=== PATIENT | male | born 1960 | race Caucasian/White ===

== ENCOUNTER 2021-10-23 14:55 | Inpatient (IN) | payer MEDICAID, OTHER ==
[~2021-10-23] VITALS: Ht 177.8 cm; Wt 87.0 kg
[~2021-10-23 14:55] MED LIST: ASPI-556 PO; ATOR10TA69 PO; GABA800T PO; INSLAN SQ; LISI20TA24 PO; OMEP20CA4 PO; TRAM50TA4 PO
[2021-10-23] MEDS ORDERED: METF-911 PO (15:15)
[2021-10-23] MEDS ORDERED: METO25 PO (15:15)
[2021-10-23 15:40] LABS: BASOPHILS % (AUTO) 0.9 % (0.0-2.0); EOSINOPHILS % (AUTO) 2.3 % (1.0-6.0); HEMATOCRIT 39.3 % (41-53); HEMOGLOBIN 13.4 g/dL (13.5-17.5); LYMPHOCYTES # (AUTO) 1.5 K/uL (1.0-4.8); LYMPHOCYTES % (AUTO) 17.1 % (22.0-44.0); MEAN CORPUSCULAR HEMOGLOBIN 28.1 pg (26.0-34.0); MEAN CORPUSCULAR HGB CONC 34.1 G/dL (31.0-37.0); MEAN CORPUSCULAR VOLUME 82 fL (80-100); MONOCYTES # (AUTO) 0.7 K/uL (0.1-1.0); MONOCYTES % (AUTO) 8.6 % (2.0-9.0); NEUTROPHILS # (AUTO) 6.2 K/uL (1.8-7.7); NEUTROPHILS % (AUTO) 71.1 % (40.0-70.0); PLATELET COUNT (AUTO) 402 K/uL (150-450); RED BLOOD CELL COUNT(AUTO) 4.77 MIL/uL (4.50-5.90); RED CELL DISTRIBUTION WIDTH 15.6 % (11.5-14.5)
[2021-10-23 15:44] LABS: SALICYLATE < 2.8 mg/dL (2.8-20.0)
[2021-10-23 15:50] LABS: ALANINE AMINOTRANSFERASE 22 U/L (12-78); ALBUMIN 3.8 g/dL (3.4-5.0); ALKALINE PHOSPHATASE 85 U/L (46-116); ANION GAP 8 mmol/L (8-16); ASPARTATE AMINOTRANSFERASE 20 U/L (15-37); BILIRUBIN,TOTAL 0.5 mg/dL (0.1-1.0); CALCIUM, TOTAL 9.2 mg/dL (8.8-10.5); CARBON DIOXIDE 28 mmol/L (22-29); CHLORIDE 88 mmol/L (98-107); CREATININE 1.15 mg/dL (0.60-1.30); GLOMERULAR FILTR. RATE CALC > 60 mL/min (>60); GLUCOSE,RANDOM 61 mg/dL (70-110); POTASSIUM 4.3 mmol/L (3.5-5.1); TOTAL PROTEIN, SERUM 7.8 g/dL (6.4-8.2); UREA NITROGEN, BLOOD 14 mg/dL (7-18)
[2021-10-23 15:51] LABS: ACETAMINOPHEN < 2 mcg/mL (10-30); SODIUM SERUM 124 mmol/L (136-145)
[2021-10-23 16:07] LABS: COVID AG,FIA SOURCE NASOPHARYNGEAL
[2021-10-23 16:23] LABS: APPEARANCE,URINE CLEAR (CLEAR); BILIRUBIN,URINE NEGATIVE (NEGATIVE); GLUCOSE, URINE (UA) NEGATIVE (NEGATIVE); KETONES,URINE NEGATIVE (NEGATIVE); LEUKOCYTE ESTERASE ,URINE NEGATIVE (NEGATIVE); NITRATE,URINE NEGATIVE (NEGATIVE); OCCULT BLOOD,URINE NEGATIVE (NEGATIVE); PROTEIN,URINE NEGATIVE (NEGATIVE); SPECIFIC GRAVITIY, URINE 1.009 (1.003-1.030); UROBILINOGEN,URINE <=1.0 mg/dL (<=1.0)
[2021-10-23 16:24] LABS: BACTERIA,URINE Rare /HPF (None Seen); RBC,URINE 0-2 /HPF (0-2); SQUAMOUS EPITHELIAL CELL,UR Rare /LPF (None Seen); WBC,URINE 0-2 /HPF (0-5)
[2021-10-23 16:30] LABS: AMPHET/METH SCREEN,URINE NEGATIVE (NEGATIVE); BARBITURATE SCREEN, URINE NEGATIVE (NEGATIVE); BENZODIAZEPINES SCREEN,URINE NEGATIVE (NEGATIVE); CANNABINOID SCREEN,URINE NEGATIVE (NEGATIVE); COCAINE SCREEN,URINE NEGATIVE (NEGATIVE); METHADONE SCREEN, URINE NEGATIVE (NEGATIVE); OPIATE SCREEN,URINE NEGATIVE (NEGATIVE)
[2021-10-23] MEDS ORDERED: LORazepam 2 MG/ML VIAL IVP ONE ×2 (16:30→17:15)
[2021-10-23 16:34] LABS: PHENCYCLIDINE SCREEN,URINE NEGATIVE (NEGATIVE)
[2021-10-23] MEDS ORDERED: 0.9% SODIUM CHLORIDE 10 ML SYRINGE IVP PRN (16:45)
[2021-10-23] MEDS ORDERED: MAGNESIUM SULFATE 2 GM/WATER 50 ML IV PRN ×2 (16:45→23:15)
[2021-10-23] MEDS ORDERED: MAGNESIUM OXIDE 400 MG TABLET PO PRN ×2 (16:45→23:15)
[2021-10-23] MEDS ORDERED: ACETAMINOPHEN 325 MG TABLET PO PRN ×2 (16:45)
[2021-10-23] MEDS ORDERED: BISACODYL 10 MG RECTAL RECTAL SUPPOSITORY PR PRN (16:45)
[2021-10-23] MEDS ORDERED: ZOLPIDEM TARTRATE 5 MG TABLET PO PRN (16:45)
[2021-10-23] MEDS ORDERED: MAGNESIUM SULFATE 4 GM/WATER 100 ML IV PRN ×2 (16:45→23:15)
[2021-10-23] MEDS ORDERED: SODIUM CHLORIDE 0.9% 1,000 ML IV ONE ×2 (16:45)
[2021-10-23] MEDS ORDERED: POTASSIUM CHL 10 MEQ/WATER 50 ML IV PRN (16:45)
[2021-10-23] MEDS ORDERED: ONDANSETRON HCL 4 MG/2 ML VIAL IVP PRN ×2 (16:45)
[2021-10-23] MEDS ORDERED: HYDROCODONE/ACETAMINOPHEN 5-325 MG TABLET PO PRN (16:45)
[2021-10-23] MEDS ORDERED: MORPHINE SULFATE 2 MG/ML SYRINGE IVP PRN (16:45)
[2021-10-23] MEDS ORDERED: MAGNESIUM HYDROXIDE SUSPENSION 30 ML UDCUP PO PRN (16:45)
[2021-10-23] MEDS ORDERED: POTASSIUM CHLORIDE 20 MEQ ER TABLET PO PRN (16:45)
[2021-10-23] MEDS ORDERED: LISI-893 PO (17:12)
[2021-10-23] MEDS ORDERED: ATOR40TA28 PO (17:12)
[2021-10-23] MEDS ORDERED: METF-1211 PO (17:14)
[2021-10-23] MEDS: METOPROLOL TARTRATE 25 MG TABLET PO SCH (20:21)
[2021-10-23] MEDS: DOCUSATE SODIUM 100 MG CAPSULE PO SCH (20:21)
[2021-10-23] MEDS: INSULIN GLARGINE,HUM.REC.ANLOG 100 UNITS/ML SQ SCH (20:23)
[2021-10-23 20:31] LABS: GLUCOSE,POINT OF CARE 147 MG/DL (70-110)
[2021-10-23] MEDS ORDERED: QUEtiapine FUMARATE 100 MG TABLET PO ONE (21:30)
[2021-10-23 21:55] VITALS: BP 113/67
[2021-10-23] MEDS ORDERED: QUEtiapine FUMARATE 300 MG TABLET PO ONE (22:45)
[2021-10-23] MEDS: HEPARIN SODIUM,PORCINE 5,000 UNITS/ML VIAL SQ SCH (23:26)
[2021-10-24] MEDS ORDERED: PNEUMOCOCCAL VACCINE POLYVALENT 0.5 ML VIAL [PPSV23] IM. ONE (01:30)
[2021-10-24 02:16] LABS: GLUCOMETER DEV NAME(LOC) 5N.1C; GLUCOSE,POINT OF CARE 136 MG/DL (70-110)
[2021-10-24 04:36] VITALS: BP 104/74
[2021-10-24 07:11] LABS: BASOPHILS % (AUTO) 0.7 % (0.0-2.0); HEMATOCRIT 37.4 % (41-53); HEMOGLOBIN 12.7 g/dL (13.5-17.5); LYMPHOCYTES # (AUTO) 2.4 K/uL (1.0-4.8); LYMPHOCYTES % (AUTO) 40.4 % (22.0-44.0); MEAN CORPUSCULAR HEMOGLOBIN 28.3 pg (26.0-34.0); MEAN CORPUSCULAR VOLUME 83 fL (80-100); MONOCYTES # (AUTO) 0.6 K/uL (0.1-1.0); MONOCYTES % (AUTO) 9.6 % (2.0-9.0); NEUTROPHILS # (AUTO) 2.7 K/uL (1.8-7.7); NEUTROPHILS % (AUTO) 45.3 % (40.0-70.0); PLATELET COUNT (AUTO) 343 K/uL (150-450); RED BLOOD CELL COUNT(AUTO) 4.49 MIL/uL (4.50-5.90); RED CELL DISTRIBUTION WIDTH 15.8 % (11.5-14.5)
[2021-10-24 07:14] LABS: ALBUMIN 3.6 g/dL (3.4-5.0); ANION GAP 5 mmol/L (8-16); CALCIUM, TOTAL 9.1 mg/dL (8.8-10.5); CARBON DIOXIDE 29 mmol/L (22-29); CHLORIDE 97 mmol/L (98-107); CREATININE 1.17 mg/dL (0.60-1.30); GLOMERULAR FILTR. RATE CALC > 60 mL/min (>60); GLUCOSE,RANDOM 96 mg/dL (70-110); POTASSIUM 4.3 mmol/L (3.5-5.1); SODIUM SERUM 131 mmol/L (136-145); UREA NITROGEN, BLOOD 13 mg/dL (7-18)
[2021-10-24 08:44] VITALS: BP 93/53
[2021-10-24] MEDS: ASPIRIN 81 MG DR TABLET PO SCH (08:49)
[2021-10-24] MEDS: DOCUSATE SODIUM 100 MG CAPSULE PO SCH ×2 (08:49→20:52)
[2021-10-24] MEDS: ATORVASTATIN CALCIUM 40 MG TABLET PO SCH (08:49)
[2021-10-24] MEDS: MetFORMIN HCL 500 MG TABLET PO SCH ×2 (08:49→18:07)
[2021-10-24] MEDS: HEPARIN SODIUM,PORCINE 5,000 UNITS/ML VIAL SQ SCH ×3 (08:51→23:11)
[2021-10-24] MEDS: PANTOPRAZOLE SODIUM 40 MG DR TABLET PO SCH (08:51)
[2021-10-24] MEDS: LISINOPRIL 10 MG TABLET PO SCH (08:52)
[2021-10-24] MEDS: METOPROLOL TARTRATE 25 MG TABLET PO SCH ×2 (08:52→20:56)
[2021-10-24] MEDS ORDERED: ATORVASTATIN CALCIUM 10 MG TABLET PO SCH (09:00)
[2021-10-24] MEDS ORDERED: LISINOPRIL 20 MG TABLET PO SCH (09:00)
[2021-10-24] MEDS: NICOTINE 21 MG/24 HOUR PATCH TD SCH (09:05)
[2021-10-24 12:00] VITALS: BP 107/57
[2021-10-24 15:41] LABS: GLUCOMETER DEV NAME(LOC) 5N.3; GLUCOSE,POINT OF CARE 118 MG/DL (70-110)
[2021-10-24 16:26] LABS: GLUCOMETER DEV NAME(LOC) 5N.1C; GLUCOSE,POINT OF CARE 127 MG/DL (70-110)
[2021-10-24] MEDS ORDERED: DIAZEPAM 5 MG TABLET PO ONE (17:15)
[2021-10-24] MEDS ORDERED: DIAZEPAM 5 MG TABLET PO PRN (17:15)
[2021-10-24 19:35] VITALS: BP 100/59
[2021-10-24 20:51] LABS: GLUCOMETER DEV NAME(LOC) 5N.1C; GLUCOSE,POINT OF CARE 96 MG/DL (70-110)
[2021-10-24] MEDS: DIAZEPAM 2 MG TABLET PO SCH (20:52)
[2021-10-24] MEDS: INSULIN GLARGINE,HUM.REC.ANLOG 100 UNITS/ML SQ SCH (20:55)
[2021-10-24] MEDS ORDERED: QUEtiapine FUMARATE 200 MG TABLET PO SCH (21:00)
[2021-10-24 23:40] VITALS: BP 118/58
[2021-10-24 23:56] LABS: GLUCOMETER DEV NAME(LOC) 5S.2B; GLUCOSE,POINT OF CARE 124 MG/DL (70-110)
[2021-10-25 03:35] VITALS: BP 95/58
[2021-10-25 05:56] LABS: GLUCOMETER DEV NAME(LOC) 5N.1C; GLUCOSE,POINT OF CARE 122 MG/DL (70-110)
[2021-10-25 07:34] VITALS: BP 109/54
[2021-10-25] MEDS ORDERED: PARoxetine HCL 20 MG TABLET PO SCH (09:00)
[2021-10-25] MEDS: PANTOPRAZOLE SODIUM 40 MG DR TABLET PO SCH (09:37)
[2021-10-25] MEDS: DOCUSATE SODIUM 100 MG CAPSULE PO SCH (09:37)
[2021-10-25] MEDS: ASPIRIN 81 MG DR TABLET PO SCH (09:37)
[2021-10-25] MEDS: DIAZEPAM 2 MG TABLET PO SCH ×3 (09:37→17:01)
[2021-10-25] MEDS: MetFORMIN HCL 500 MG TABLET PO SCH (09:37)
[2021-10-25] MEDS: QUEtiapine FUMARATE 25 MG TABLET PO SCH ×3 (09:37→17:05)
[2021-10-25] MEDS: HEPARIN SODIUM,PORCINE 5,000 UNITS/ML VIAL SQ SCH ×2 (09:38→16:00)
[2021-10-25] MEDS: ATORVASTATIN CALCIUM 40 MG TABLET PO SCH (09:40)
[2021-10-25] MEDS: METOPROLOL TARTRATE 25 MG TABLET PO SCH (09:48)
[2021-10-25] MEDS: LISINOPRIL 10 MG TABLET PO SCH (09:48)
[2021-10-25 11:05] VITALS: BP 112/75
[2021-10-25] MEDS: NICOTINE 21 MG/24 HOUR PATCH TD SCH (11:37)
[2021-10-25] MEDS ORDERED: QUET200T30 PO (11:48)
[2021-10-25] MEDS ORDERED: PARO-37 PO (11:48)
== END 2021-10-25 17:20 | disposition home or self-care (01) | DRG 817 ==
LOC: EMS 14:57 → 5S 21:38
PROVIDERS: ADMIT Internal Medicine; ATTEND Internal Medicine
DX: T43.292A Poisoning by other antidepressants, intentional self-harm, initial encounter (principal); E87.1 Hypo-osmolality and hyponatremia; I11.9 Hypertensive heart disease without heart failure; E11.9 Type 2 diabetes mellitus without complications; E78.5 Hyperlipidemia, unspecified; F41.9 Anxiety disorder, unspecified; F19.10 Other psychoactive substance abuse, uncomplicated; K21.9 Gastro-esophageal reflux disease without esophagitis; F32.A Depression, unspecified; Z20.822 Contact with and (suspected) exposure to COVID-19; E86.0 Dehydration; E78.00 Pure hypercholesterolemia, unspecified; Z79.4 Long term (current) use of insulin; Z79.82 Long term (current) use of aspirin; Z87.891 Personal history of nicotine dependence; Z95.5 Presence of coronary angioplasty implant and graft; Z79.84 Long term (current) use of oral hypoglycemic drugs; Z79.899 Other long term (current) drug therapy; Y92.89 Other specified places as the place of occurrence of the external cause
CPT/HCPCS: 80048; 80053; 81001; 82040; 82962; 83735; 84484; 85025; 93005; 99291; G0480; G0481; J1644; J1815; J2060; J7030

== ENCOUNTER 2025-05-27 22:13 | Emergency (ER) | payer OTHER ==
[~2025-05-27] VITALS: Ht 175.3 cm; Wt 72.7 kg
[~2025-05-27 22:13] MED LIST changes: -ATOR10TA69 PO; +ATOR40TA28 PO; +LISI-893 PO; -LISI20TA24 PO; +METF-1211 PO; +METO25 PO; +PARO-37 PO; +QUET200T30 PO
[2025-05-27 22:40] VITALS: TEMP 98.205296
[2025-05-27 23:21] LABS: GLUCOMETER DEV NAME(LOC) ER.7; GLUCOSE,POINT OF CARE 86 MG/DL (70-110)
[2025-05-27 23:57] LABS: PLATELET COUNT (AUTO) 461 K/uL (150-450); RED BLOOD CELL COUNT(AUTO) 4.38 MIL/uL (4.50-5.90); RED CELL DISTRIBUTION WIDTH 16.0 % (11.5-14.5); WHITE BLOOD COUNT (AUTO) 9.4 K/uL (4.5-11.0)
[2025-05-28 00:17] LABS: CALCIUM, TOTAL 9.0 mg/dL (8.8-10.5); CREATININE 0.93 mg/dL (0.60-1.30); GLOMERULAR FILTR. RATE CALC > 60 mL/min (>60); GLUCOSE,RANDOM 87 mg/dL (70-110); SODIUM SERUM 135 mmol/L (136-145); UREA NITROGEN, BLOOD 28 mg/dL (7-18)
[2025-05-28 01:15] LABS: APPEARANCE,URINE CLEAR (CLEAR); GLUCOSE, URINE (UA) >=1000 mg/dL (NEGATIVE); LEUKOCYTE ESTERASE ,URINE NEGATIVE (NEGATIVE); NITRATE,URINE NEGATIVE (NEGATIVE); OCCULT BLOOD,URINE NEGATIVE (NEGATIVE); SPECIFIC GRAVITIY, URINE 1.013 (1.003-1.030)
[2025-05-28 01:20] LABS: SQUAMOUS EPITHELIAL CELL,UR Few /LPF (None Seen)
[2025-05-28 02:00] VITALS: BP 142/86; PULSE 80; RESP 17; O2SAT 95
== END 2025-05-28 02:15 ==
LOC: EMS 22:34
DX: S70.01XA Contusion of right hip, initial encounter (principal); E11.9 Type 2 diabetes mellitus without complications; E78.00 Pure hypercholesterolemia, unspecified; F31.9 Bipolar disorder, unspecified; F41.9 Anxiety disorder, unspecified; I10 Essential (primary) hypertension; K21.9 Gastro-esophageal reflux disease without esophagitis; Z79.4 Long term (current) use of insulin; Z79.82 Long term (current) use of aspirin; Z95.5 Presence of coronary angioplasty implant and graft; Z79.899 Other long term (current) drug therapy; W19.XXXA Unspecified fall, initial encounter; Y93.89 Activity, other specified; Y92.89 Other specified places as the place of occurrence of the external cause; Y99.8 Other external cause status
CPT/HCPCS: 73521; 80048; 81001; 82962; 85025; 99284

== ENCOUNTER 2025-07-31 11:53 | Inpatient (IN) | payer OTHER ==
[~2025-07-31] VITALS: Ht 167.6 cm; Wt 77.5 kg
[2025-07-31] MEDS ORDERED: BUPR-50 PO (12:57)
[2025-07-31] MEDS ORDERED: BUPR1TAB32 SL (12:57)
[2025-07-31] MEDS: ALBUTEROL SULFATE 2.5 MG/0.5 ML NEB SOLUTION NEB ONE (14:00)
[2025-07-31 14:01] VITALS: PULSE 84; RESP 18; O2SAT 95
[2025-07-31] MEDS: IPRATROPIUM BROMIDE 0.5 MG/2.5 ML NEB SOLUTION NEB ONE (14:01)
[2025-07-31] MEDS: FUROSEMIDE 40 MG/4 ML VIAL IVP ONE (14:04)
[2025-07-31] MEDS: ASPIRIN 325 MG TABLET PO ONE (14:05)
[2025-07-31 14:16] VITALS: PULSE 71; RESP 18; O2SAT 99
[2025-07-31] MEDS ORDERED: ONDANSETRON HCL 4 MG/2 ML VIAL IVP PRN (14:30)
[2025-07-31] MEDS ORDERED: ACETAMINOPHEN 325 MG TABLET PO PRN (14:30)
[2025-07-31] MEDS ORDERED: DEXTROSE 50%-WATER 25 GM/50 ML SYRINGE IVP PRN (14:30)
[2025-07-31] MEDS ORDERED: MAGNESIUM HYDROXIDE SUSPENSION 30 ML UDCUP PO PRN (14:30)
[2025-07-31 14:41] LABS: COVID AG,FIA SOURCE NASAL SWAB
[2025-07-31 14:47] LABS: PLATELET COUNT (AUTO) 391 K/uL (150-450); RBC MORPHOLOGY COMMENT ABNORMAL RBC MORPH; RED BLOOD CELL COUNT(AUTO) 4.31 MIL/uL (4.50-5.90); RED CELL DISTRIBUTION WIDTH 17.8 % (11.5-14.5); WHITE BLOOD COUNT (AUTO) 10.5 K/uL (4.5-11.0)
[2025-07-31 14:47] LABS: APPEARANCE,URINE CLEAR (CLEAR); GLUCOSE, URINE (UA) NEGATIVE (NEGATIVE); LEUKOCYTE ESTERASE ,URINE NEGATIVE (NEGATIVE); NITRATE,URINE NEGATIVE (NEGATIVE); OCCULT BLOOD,URINE NEGATIVE (NEGATIVE); SPECIFIC GRAVITIY, URINE 1.012 (1.003-1.030)
[2025-07-31 14:50] LABS: PH,URINE DRUG SCREEN 6.0 (5.0-8.0)
[2025-07-31 14:56] LABS: CALCIUM, TOTAL 9.3 mg/dL (8.8-10.5); CREATININE 1.06 mg/dL (0.60-1.30); GLOMERULAR FILTR. RATE CALC > 60 mL/min (>60); GLUCOSE,RANDOM 69 mg/dL (70-110); SODIUM SERUM 139 mmol/L (136-145); UREA NITROGEN, BLOOD 34 mg/dL (7-18)
[2025-07-31 14:56] LABS: AMPHET/METH SCREEN,URINE NEGATIVE (NEGATIVE); BARBITURATE SCREEN, URINE NEGATIVE (NEGATIVE); CANNABINOID SCREEN,URINE NEGATIVE (NEGATIVE); COCAINE SCREEN,URINE NEGATIVE (NEGATIVE); METHADONE SCREEN, URINE NEGATIVE (NEGATIVE)
[2025-07-31 14:57] LABS: ALCOHOL, URINE DRUG SCREEN NEGATIVE (NEGATIVE)
[2025-07-31 15:05] LABS: TROPONIN I-HIGH SENSITIVITY 19 ng/L (<76)
[2025-07-31 15:19] LABS: SARS-COV2 (COVID) ANTIGEN,FIA Negative (Negative)
[2025-07-31 15:20] LABS: INFLUENZA TYPE A NEGATIVE FOR TYPE A (NEGATIVE); INFLUENZA TYPE B NEGATIVE FOR TYPE B (NEGATIVE)
[2025-07-31] MEDS: INSULIN LISPRO 100 UNITS/ML SQ PRN (17:56)
[2025-07-31] MEDS: HEPARIN SODIUM,PORCINE 5,000 UNITS/ML VIAL SQ SCH (17:56)
[2025-07-31 18:42] VITALS: BP 129/85; PULSE 81; RESP 17; TEMP 98.4; O2SAT 99
[2025-07-31 20:30] VITALS: BP 110/74; PULSE 72; RESP 18; TEMP 98.1; O2SAT 95
[2025-07-31] MEDS: DOCUSATE SODIUM 100 MG CAPSULE PO SCH (21:01)
[2025-07-31] MEDS: METOPROLOL TARTRATE 25 MG TABLET PO SCH (21:01)
[2025-08-01 00:05] VITALS: BP 91/61; PULSE 77; RESP 17; TEMP 98.4; O2SAT 94
[2025-08-01] MEDS: ZOLPIDEM TARTRATE 5 MG TABLET PO PRN (00:20)
[2025-08-01 03:42] VITALS: BP 96/63; PULSE 78; RESP 17; TEMP 97.9; O2SAT 96
[2025-08-01 08:00] VITALS: BP 116/82; PULSE 67; RESP 17; TEMP 97.9; O2SAT 98
[2025-08-01] MEDS: FUROSEMIDE 20 MG TABLET PO SCH (08:26)
[2025-08-01] MEDS: CLOPIDOGREL BISULFATE 75 MG TABLET PO SCH (08:27)
[2025-08-01] MEDS: FAMOTIDINE 20 MG TABLET PO SCH (08:27)
[2025-08-01 09:00] LABS: PLATELET COUNT (AUTO) 378 K/uL (150-450); RED BLOOD CELL COUNT(AUTO) 4.13 MIL/uL (4.50-5.90); RED CELL DISTRIBUTION WIDTH 17.2 % (11.5-14.5); WHITE BLOOD COUNT (AUTO) 8.9 K/uL (4.5-11.0)
[2025-08-01 09:11] LABS: CALCIUM, TOTAL 8.8 mg/dL (8.8-10.5); CREATININE 1.21 mg/dL (0.60-1.30); GLOMERULAR FILTR. RATE CALC 60.0 mL/min (>60); GLUCOSE,RANDOM 216.0 mg/dL (70-110); SODIUM SERUM 136.0 mmol/L (136-145); UREA NITROGEN, BLOOD 32.0 mg/dL (7-18)
[2025-08-01] MEDS: ASPIRIN 81 MG CHEWABLE TABLET PO SCH (09:25)
[2025-08-01 11:20] VITALS: BP 102/70; PULSE 74; RESP 18; TEMP 98.8; O2SAT 97
[2025-08-01 11:53] LABS: RBC MORPHOLOGY COMMENT ABNORMAL RBC MORPH
[2025-08-01] MEDS ORDERED: OMEP-148 PO (12:10)
[2025-08-01] MEDS ORDERED: ASPI-1444 PO (12:10)
[2025-08-01] MEDS: BUPRENORPHINE HCL/NALOXONE HCL 8-2 MG SUBLINGUAL TABLET SL SCH (12:18)
[2025-08-01] MEDS: BuPROPion HCL XL 150 MG ER TABLET PO SCH (12:18)
[2025-08-01 15:46] VITALS: BP 119/82; PULSE 65; RESP 17; TEMP 98.2; O2SAT 97
[2025-08-01 17:50] LABS: GLUCOMETER DEV NAME(LOC) 5N.2C; GLUCOSE,POINT OF CARE 264 MG/DL (70-110)
[2025-08-01 19:31] VITALS: BP 122/82; PULSE 84; RESP 18; TEMP 98.1; O2SAT 95
[2025-08-01] MEDS: FLUTICASONE/SALMETEROL 100-50 MCG/INH INHALER [60] IH SCH (21:53)
[2025-08-01] MEDS: TAMSULOSIN HCL 0.4 MG CAPSULE PO SCH (21:54)
[2025-08-01] MEDS: MIDODRINE HCL 5 MG TABLET PO SCH (21:55)
[2025-08-01] MEDS: ATORVASTATIN CALCIUM 40 MG TABLET PO SCH (21:55)
[2025-08-01] MEDS: APIXABAN 5 MG TABLET PO SCH (21:56)
[2025-08-02] VITALS (8 sets, daily range): BP systolic 87–122; BP diastolic 53–82; PULSE 64–87; RESP 18; TEMP 97.9–98.8; O2SAT 95–98
[2025-08-02] MEDS: PANTOPRAZOLE SODIUM 40 MG DR TABLET PO SCH (09:17)
[2025-08-02] MEDS: CELECOXIB 200 MG CAPSULE PO SCH (09:17)
[2025-08-02] MEDS: POTASSIUM CHLORIDE 10 MEQ ER TABLET PO SCH (09:18)
[2025-08-02] MEDS: MIDODRINE HCL 5 MG TABLET PO SCH (15:30)
[2025-08-03] VITALS (9 sets, daily range): BP systolic 94–121; BP diastolic 65–84; PULSE 62–77; RESP 17–20; TEMP 97.7–98.6; O2SAT 95–99
[2025-08-03 07:18] LABS: TROPONIN I-HIGH SENSITIVITY 15 ng/L (<76)
[2025-08-03 07:44] LABS: PLATELET COUNT (AUTO) 384 K/uL (150-450); RED BLOOD CELL COUNT(AUTO) 4.40 MIL/uL (4.50-5.90); RED CELL DISTRIBUTION WIDTH 17.7 % (11.5-14.5); WHITE BLOOD COUNT (AUTO) 15.4 K/uL (4.5-11.0)
[2025-08-03 07:50] LABS: RBC MORPHOLOGY COMMENT ABNORMAL RBC MORPH
[2025-08-03 08:08] LABS: CALCIUM, TOTAL 8.8 mg/dL (8.8-10.5); CREATININE 1.14 mg/dL (0.60-1.30); GLOMERULAR FILTR. RATE CALC > 60 mL/min (>60); GLUCOSE,RANDOM 191 mg/dL (70-110); SODIUM SERUM 136 mmol/L (136-145); UREA NITROGEN, BLOOD 40 mg/dL (7-18)
[2025-08-03] MEDS ORDERED: 0.9% SODIUM CHLORIDE 5 ML NEB SOLUTION NEB ONE (14:42)
[2025-08-03] MEDS: ALBUTEROL SULFATE 2.5 MG/0.5 ML NEB SOLUTION NEB PRN (14:45)
[2025-08-03 17:40] LABS: GLUCOMETER DEV NAME(LOC) 4S.2; GLUCOSE,POINT OF CARE 252 MG/DL (70-110)
[2025-08-03 20:46] LABS: GLUCOMETER DEV NAME(LOC) 5S.2E; GLUCOSE,POINT OF CARE 226 MG/DL (70-110)
[2025-08-03 20:46] LABS: GLUCOMETER DEV NAME(LOC) 5S.2E; GLUCOSE,POINT OF CARE 295 MG/DL (70-110)
[2025-08-03 20:47] LABS: GLUCOMETER DEV NAME(LOC) 5S.2E; GLUCOSE,POINT OF CARE 252 MG/DL (70-110)
[2025-08-03 20:47] LABS: GLUCOMETER DEV NAME(LOC) 5S.2E; GLUCOSE,POINT OF CARE 337 MG/DL (70-110)
[2025-08-03 20:47] LABS: GLUCOMETER DEV NAME(LOC) 5S.2E; GLUCOSE,POINT OF CARE 246 MG/DL (70-110)
[2025-08-03 20:47] LABS: GLUCOMETER DEV NAME(LOC) 5S.2E; GLUCOSE,POINT OF CARE 189 MG/DL (70-110)
[2025-08-03 22:21] LABS: GLUCOMETER DEV NAME(LOC) 4S.2; GLUCOSE,POINT OF CARE 266 MG/DL (70-110)
[2025-08-04 05:32] VITALS: BP 105/74; PULSE 66; RESP 18; TEMP 97.7; O2SAT 96
[2025-08-04 05:50] LABS: GLUCOMETER DEV NAME(LOC) 4S.2; GLUCOSE,POINT OF CARE 255 MG/DL (70-110)
[2025-08-04 08:30] VITALS: BP 108/76; PULSE 64; RESP 18; TEMP 98.1; O2SAT 98
[2025-08-04] MEDS ORDERED: APIX5TAB PO (10:45)
[2025-08-04] MEDS ORDERED: CLOP75TA83 PO (10:48)
[2025-08-04] MEDS ORDERED: CELE200 PO (10:48)
[2025-08-04] MEDS ORDERED: FAMO20 PO (10:49)
[2025-08-04] MEDS ORDERED: FURO20TA5 PO (10:50)
[2025-08-04] MEDS ORDERED: FLUT1BLS18 IH (10:50)
[2025-08-04] MEDS ORDERED: MIDO5TAB29 PO (10:51)
[2025-08-04] MEDS ORDERED: PANT-31 PO (10:52)
[2025-08-04] MEDS ORDERED: PRED-554 PO (10:52)
[2025-08-04] MEDS ORDERED: POTA-92 PO (10:53)
[2025-08-04] MEDS ORDERED: QUET100T PO (10:54)
[2025-08-04] MEDS ORDERED: TAMS0.4C94 PO (10:54)
[2025-08-04 12:06] LABS: GLUCOMETER DEV NAME(LOC) 4S.2; GLUCOSE,POINT OF CARE 241 MG/DL (70-110)
[2025-08-04 12:21] VITALS: PULSE 76; RESP 18; O2SAT 96
[2025-08-04 12:33] VITALS: PULSE 76; RESP 18; O2SAT 99
[2025-08-04 15:51] LABS: GLUCOMETER DEV NAME(LOC) 5N.1D; GLUCOSE,POINT OF CARE 366 MG/DL (70-110)
[2025-08-04 15:51] LABS: GLUCOMETER DEV NAME(LOC) 5N.1D; GLUCOSE,POINT OF CARE 257 MG/DL (70-110)
[2025-08-04 15:51] LABS: GLUCOMETER DEV NAME(LOC) 5N.1D; GLUCOSE,POINT OF CARE 307 MG/DL (70-110)
[2025-08-04 15:51] LABS: GLUCOMETER DEV NAME(LOC) 5N.1D; GLUCOSE,POINT OF CARE 253 MG/DL (70-110)
== END 2025-08-04 15:25 | DRG 291 ==
LOC: EMS 11:53 → EDH 14:26 → 5S 17:37 → 4S 08-03 16:57
PROVIDERS: ADMIT Internal Medicine; ATTEND Internal Medicine
DX: I11.0 Hypertensive heart disease with heart failure (principal); I50.23 Acute on chronic systolic (congestive) heart failure; J96.01 Acute respiratory failure with hypoxia; J44.1 Chronic obstructive pulmonary disease with (acute) exacerbation; Z79.01 Long term (current) use of anticoagulants; Z79.02 Long term (current) use of antithrombotics/antiplatelets; F11.20 Opioid dependence, uncomplicated; E11.9 Type 2 diabetes mellitus without complications; F32.A Depression, unspecified; Z20.822 Contact with and (suspected) exposure to COVID-19; F17.200 Nicotine dependence, unspecified, uncomplicated; E78.00 Pure hypercholesterolemia, unspecified; I25.10 Atherosclerotic heart disease of native coronary artery without angina pectoris; F41.9 Anxiety disorder, unspecified; K21.9 Gastro-esophageal reflux disease without esophagitis; I25.2 Old myocardial infarction; Z95.5 Presence of coronary angioplasty implant and graft; Z79.1 Long term (current) use of non-steroidal anti-inflammatories (NSAID); Z79.82 Long term (current) use of aspirin; Z83.3 Family history of diabetes mellitus; Z79.899 Other long term (current) drug therapy
CPT/HCPCS: 71045; 80048; 80307; 81003; 82962; 83880; 84484; 85025; 87804; 93005; 93306; 93970; 94640; 96374; 96375; 99285; G0378; J1644; J1938; J2919; J3535; 36415-L1; 36415-TC; J7613